=== PATIENT | female | born 1955 | race Caucasian/White ===

== ENCOUNTER → 2017-01-15 | Outpatient (CLI) | payer OTHER ==
--- NOTE | 2017-01-15 11:51 | XR ---
EXAMINATION TYPE: XR shoulder limited LT DATE OF EXAM: 01/15/2017 11:07 AM COMPARISON: NONE HISTORY: 61-year-old female with left shoulder pain TECHNIQUE: 2 views, AP and scapular Y FINDINGS: Mild degenerative spurring at the AC joint. Subacromial space is preserved. No tendinous or bursal ca lcifications. No acute fracture or dislocation. IMPRESSION: Mild AC joint OA. No acute osseous abnormality seen.
== END ==
LOC: RADXRMAIN 10:41
PROVIDERS: ATTEND Family Medicine
DX: M19.012 Primary osteoarthritis, left shoulder (principal)